=== PATIENT | female | born 1965 | race Caucasian/White ===

== ENCOUNTER 2022-09-07 09:10 | Emergency (ER) | payer OTHER, SELFPAY ==
[2022-09-07 09:45] VITALS: BP 152/91; PULSE 89; RESP 20; TEMP 36.1; O2SAT 98
--- NOTE | 2022-09-07 10:33 | ED.WOUNDLAC ---
HPI - Wound/Laceration General Chief Complaint: Wound/Laceration Stated Complaint: DOG SCRATCH Time Seen by Provider: 09/07/22 10:33 Source: patient and RN notes reviewed Mode of arrival: ambulatory Limitations: no limitations History of Present Illness HPI narrative: 57 y/o female presented for left lower eye lid laceration from her playful dog sustained this morning. States she has a horizontal laceration with a skin tear. 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 Denies vision changes or painful eye movements. Patient also reports frequent nonproductive cough for 3 days, and lost her voice last week. Not taking anything for symptoms. Denies sob, wheezing, n/v/d/f/c. 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 Related Data Home Medications Medication Instructions Recorded Confirmed albuterol sulfate 90 mcg/actuation 2 inh inhalation DIRECTED 09/07/22 09/07/22 aerosol inhaler (Ventolin HFA) amlodipine 5 mg tablet 5 mg PO DAILY 09/07/22 09/07/22 citalopram 10 mg tablet 10 mg PO DAILY 09/07/22 09/07/22 diclofenac sodium 1 % topical gel 4 g topical DAILY 09/07/22 09/07/22 fluticasone 100 mcg-salmeterol 50 1 inh inhalation DIRECTED 09/07/22 09/07/22 mcg/dose blistr powdr for inhalation (Advair Diskus) lisinopril 20 mg tablet 20 mg PO DAILY 09/07/22 09/07/22 meloxicam 15 mg tablet 15 mg PO DAILY 09/07/22 09/07/22 montelukast 10 mg tablet 10 mg PO DAILY 09/07/22 09/07/22 omeprazole 40 mg capsule,delayed 40 mg PO DAILY 09/07/22 09/07/22 release polysaccharide iron complex 150 mg 150 mg PO DAILY 09/07/22 09/07/22 iron capsule Allergies Allergy/AdvReac Type Severity Reaction Status Date / Time amoxicillin Allergy Difficulty Verified 09/07/22 09:50 Breathing Review of Systems Review of Systems: CONSTITUTIONAL: Denies malaise, chills, sweats, fever EYES: Denies visual changes, redness, or discharge ENT: Reports rhinorrhea, denies sinus pain, otalgia, sore throat CARDIOVASCULAR: Denies chest pain, palpitations, edema RESPIRATORY: Reports cough, post nasal drainage. Denies dyspnea GASTROINTESTINAL: Denies abdominal pain, nausea, vomiting, diarrhea SKIN: Denies rash or itching MUSCULOSKELETAL: Denies myalgia NEUROLOGIC: Denies headache PMFSH Past Medical History Medical History (Updated 09/07/22 @ 11:38 by Amy Feldman, PRADIP) Hypertension Exam Narrative: GENERAL: well-appearing, nontoxic no acute distress. HEAD: Normocephalic EYES: PERRLA, EOMI, conjunctivae clear. Left lower eye horizontal laceration with skin tear laterally, wound approx 1.5cm length, edges approximate, minimal oozing of blood; mild swelling and bruising to lower lid. ENT: Mucous membranes moist. NECK: Supple. No lymphadenopathy CHEST: Clear to auscultation, breath sounds equal. Frequent factory maintenance manager cough, hoarse voice; No wheezing, rhonchi, rales, or stridor. No respiratory distress, speaks in full sentences. HEART: Regular rate and rhythm. No murmur heard. SKIN: Warm, dry NEURO: Alert and oriented x3. PSYCH: Normal mood and affect Course Course Emergency Course: Patient is aware of diagnosis, understands and agrees to treatment plan. Anticipatory guidance given. Patient agrees to follow-up as directed and is aware of reasons to seek care at the emergency department. Portions of this record may have been created with voice recognition software Level of Care: Express Care Visit Vital Signs Vital signs: Vital Signs Temperature 96.9 F L 09/07/22 09:45 Pulse Rate 89 09/07/22 09:45 Respiratory Rate 20 09/07/22 09:45 Blood Pressure 152/91 H 09/07/22 09:45 Pulse Oximetry 98 09/07/22 09:45 Oxygen Delivery Room Air 09/07/22 09:45 Temperature 96.9 F L 09/07/22 09:45 Pulse Rate 89 09/07/22 09:45 Respiratory Rate 20 09/07/22 09:45 Blood Pressure 152/91 H 09/07/22 09:45 Pulse Oximetry 98 09/07/22 09:45 Oxygen Delivery Room Air 09/07/22 09:45 reviewed
== END 2022-09-07 11:16 | disposition home or self-care (01) ==
PROVIDERS: Emergency Provider Nurse Practitioner Family; PCP Student in an Organized Health Care Education/Training Program
DX: S01.511A Laceration without foreign body of lip, initial encounter (principal); W54.8XXA Other contact with dog, initial encounter; B34.9 Viral infection, unspecified; I10 Essential (primary) hypertension
CPT/HCPCS: 12011; 99213; G0463